=== PATIENT | male | born 1965 | race Caucasian/White ===

== ENCOUNTER 2017-09-27 21:30 | Emergency (ER) | payer SELFPAY ==
[~2017-09-27] VITALS: Ht 175.3 cm; Wt 77.1 kg
[2017-09-27] MEDS ORDERED: DIAZEPAM 10 MG/2 ML DISP.SYRIN ONE (21:37)
[2017-09-27 21:40] VITALS: BP_SYST 130
--- NOTE | 2017-09-27 22:25 | NUR ---
Patient to [facility] for evaluation. Side rails up. Report given to CAROLYN BAKER.
--- NOTE | 2017-09-27 22:27 | NUR ---
Pt BIB BLS c/o 7 cm laceration to L forehead s/p fall x1hour ago. Pt states he was walking his dog, tripped and fell on his head. Pt denies LOC, N/V. Active bleeding noted on laceration. Superficial cuts noted on bridge of nose and R scalp. Pt breathing even and unlabored, pt speaking in full sentences, pt denies pain bruce. at bedside. No other injuries/complaints per pt/noted. Will continue to monitor.
--- NOTE | 2017-09-27 22:28 | NUR ---
ER Dr. Hogue at bedside examining patient.
--- NOTE | 2017-09-27 22:28 | NUR ---
MOVED PT TO BED 4 FOR LACERATION REPAIR
--- NOTE | 2017-09-27 22:30 | NUR ---
Site to L Forehead cleansed with NS. No dressing applied bruce. Tetanus vaccination unknown.
--- NOTE | 2017-09-27 23:10 | NUR ---
GRAY Hogue at bedside providing wound care.
--- NOTE | 2017-09-27 23:15 | NUR ---
Patient has a 7cm laceration to L forehead and R scalp. Dr. Hogue applied 34 sutures using sterile technique. Edges well approximated. Site cleansed with NS. Dressing of steristrips and non-adherent dressing applied to site. No bleeding noted. Pt tolerated well.
[2017-09-27] MEDS: LIDOCAINE/EPI 1% 1:100000 20 ML VIAL IJ ONE (23:26)
[2017-09-27] MEDS: DIPH-TET-PERTUS Vaccine 0.5 ML VIAL (ADACEL) IM ONE (23:42)
[2017-09-27] MEDS: BACITRACIN 1 GM OINT TP ONE (23:42)
[2017-09-28 00:15] VITALS: BP_SYST 126
--- NOTE | 2017-09-28 00:15 | NUR ---
Patient given written and verbal discharge instructions and verbalizes understanding. ER MD Hogue discussed with patient the results and treatment provided. Patient in stable condition. ID arm band removed. Rx of Naprosyn, Keflex given. Patient educated on pain management and to follow up with PMD. Pain Scale 0. Opportunity for questions provided and answered.
== END 2017-09-28 00:15 | disposition home or self-care (01) ==
LOC: SED 21:30
DX: S01.81XA Laceration without foreign body of other part of head, initial encounter (principal); W01.0XXA Fall on same level from slipping, tripping and stumbling without subsequent striking against object, initial encounter; Y93.01 Activity, walking, marching and hiking; Y92.89 Other specified places as the place of occurrence of the external cause; Y99.8 Other external cause status
CPT/HCPCS: 90715; 99283; J3360

== ENCOUNTER 2017-10-08 14:13 | Emergency (ER) | payer MEDICAID ==
[~2017-10-08] VITALS: Ht 172.7 cm; Wt 77.6 kg
[2017-10-08 14:19] VITALS: BP_SYST 146
[2017-10-08 15:18] VITALS: BP_SYST 130
== END 2017-10-08 15:18 | disposition home or self-care (01) ==
LOC: SED 14:13
DX: S01.81XD Laceration without foreign body of other part of head, subsequent encounter (principal); W01.0XXD Fall on same level from slipping, tripping and stumbling without subsequent striking against object, subsequent encounter
CPT/HCPCS: 99281